=== PATIENT | male | born 1970 | race Caucasian/White ===

== ENCOUNTER 2017-02-15 22:36 | Emergency (ER) | payer MEDICAID ==
[~2017-02-15] VITALS: Ht 180.3 cm; Wt 98.4 kg
--- NOTE | 2017-02-15 23:02 | NUR ---
Pt seen by Dr. Tellez, awaiting further orders.
[2017-02-15 23:20] LABS: BASOPHILS % (AUTO) 0.4 % (0.0-2.0); EOSINOPHILS # (AUTO) 0.1 K/uL (0.0-0.7); EOSINOPHILS % (AUTO) 1.2 % (0.0-7.0); HEMATOCRIT 44.1 % (40-50); HEMOGLOBIN 15.1 G/DL (14.0-18.0); LYMPHOCYTES # (AUTO) 1.4 K/UL (0.8-4.8); MEAN CORPUSCULAR HEMOGLOBIN 29.6 UUG (27.0-31.0); MEAN CORPUSCULAR HGB CONC 34 g/dL (32.0-37.0); MEAN CORPUSCULAR VOLUME 86.8 FL (82.0-92.0); MONOCYTES # (AUTO) 0.5 K/UL (0.1-1.30); MONOCYTES % (AUTO) 6.1 % (0.0-11.0); NEUTROPHILS # (AUTO) 5.7 K/UL (1.8-8.9); NEUTROPHILS % (AUTO) 74.3 % (38.5-71.5); PLATELET COUNT (AUTO) 230 K/UL (150-450); RED BLOOD CELL COUNT(AUTO) 5.09 MIL/UL (4.7-6.1); WHITE BLOOD COUNT (AUTO) 7.7 K/UL (4.0-11.2)
--- NOTE | 2017-02-16 | NUR ---
Pt resting in position of comfort for self. No complaints at this time.
--- NOTE | 2017-02-16 02:50 | NUR ---
Pt remains pain free. Pt stable for discharge per Dr. Tellez. IV dc'd, catheter intact. Drsg applied. No problems noted to site. Pt given ACI. Pt verbalized understanding of dc instructions. Pt ambulated out of er with steady gait.
[2017-02-16 02:51] VITALS: BP 128/73
== END 2017-02-16 02:51 | disposition home or self-care (01) ==
LOC: ER 22:36
DX: R07.9 Chest pain, unspecified (principal)
CPT/HCPCS: 36415 ×2; 71010; 80048; 84484 ×2; 85025; 85379; 85730; 93005 ×2; 99285; A4663; 70030-TC